=== PATIENT | male | born 1980 | race Caucasian/White ===

== ENCOUNTER 2018-05-28 18:07 | Emergency (ER) | payer SELFPAY, OTHER, MEDICAID ==
[2018-05-29] MEDS: ACETAMINOPHEN 325 MG TAB PO (01:28)
[2018-05-29] MEDS: CEFAZOLIN 1 GM INJ IM (03:35)
[2018-05-29] MEDS: LIDOCAINE 1% (MPF) 5 ML VIAL INJ (03:39)
== END 2018-05-29 05:08 | disposition home or self-care (01) ==
LOC: FTE 18:07
DX: S61.412A Laceration without foreign body of left hand, initial encounter (principal); W18.49XA Other slipping, tripping and stumbling without falling, initial encounter; Y92.9 Unspecified place or not applicable
CPT/HCPCS: 12002; 73130-LT; 96372; 99284-25

== ENCOUNTER 2018-05-30 15:47 | Emergency (ER) | payer SELFPAY | END 2018-05-30 16:49 | disposition home or self-care (01) | LOC: FTE 15:47 | DX: Z48.01 Encounter for change or removal of surgical wound dressing (principal) | CPT/HCPCS: 99281 ==

== ENCOUNTER 2018-06-06 15:24 | Emergency (ER) | payer SELFPAY | END 2018-06-06 16:56 | disposition home or self-care (01) | LOC: E/R 15:24 | DX: Z48.02 Encounter for removal of sutures (principal) | CPT/HCPCS: 99281 ==